=== PATIENT | male | born 2005 | race Hispanic/Latino ===

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

== ENCOUNTER 2024-04-04 16:59 | Emergency (ER) | payer SELFPAY ==
[~2024-04-04] VITALS: Ht 175.3 cm; Wt 93.0 kg
[2024-04-04 17:00] VITALS: PULSE 87; RESP 18; TEMP 98.9
[2024-04-04] MEDS: TRAMADOL HCL 50 MG TAB PO STA (18:56)
[2024-04-04] MEDS ORDERED: ULTRAM 50MG50 MG PO (20:04)
[2024-04-04 20:14] VITALS: BP 129/90; O2SAT 100
== END 2024-04-04 20:17 | disposition home or self-care (01) ==
LOC: ER 17:49
DX: S00.83XA Contusion of other part of head, initial encounter (principal); M25.511 Pain in right shoulder; M25.521 Pain in right elbow; M25.561 Pain in right knee; V00.831A Fall from motorized mobility scooter, initial encounter; Y92.488 Other paved roadways as the place of occurrence of the external cause
CPT/HCPCS: 70450; 71046; 72125; 99284